=== PATIENT | female | born 1970 | race Caucasian/White ===

== ENCOUNTER 2018-03-24 10:37 | Emergency (ER) | payer BC, OTHER ==
[2018-03-24] MEDS ORDERED: TRAMADOL HCL 50 MG TAB ONE (11:10)
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
[2018-03-24 11:46] LABS: Urine Blood NEGATIVE (NEG); Urine Glucose NEGATIVE (NEG); Urine Protein NEGATIVE (NEG)
== END 2018-03-24 11:49 | disposition home or self-care (01) ==
LOC: ER 10:37
DX: S16.1XXA Strain of muscle, fascia and tendon at neck level, initial encounter (principal); S39.012A Strain of muscle, fascia and tendon of lower back, initial encounter; V49.49XA Driver injured in collision with other motor vehicles in traffic accident, initial encounter; Z88.8 Allergy status to other drugs, medicaments and biological substances; F17.210 Nicotine dependence, cigarettes, uncomplicated; I10 Essential (primary) hypertension; E03.9 Hypothyroidism, unspecified
CPT/HCPCS: 72125; 81003; 81025; 99284